=== PATIENT | female | born 1990 | race African-American/Black ===

== ENCOUNTER 2016-11-24 16:39 | Emergency (ER) | payer OTHER ==
--- NOTE | 2016-11-24 19:29 | ED ---
Lower Extremity - HPI Summary HPI Summary: 26F presents with tailbone pain since yesterday. She states that she fell on some ice and landed on her tailbone. She has been able to ambulate. She states the pain has been decreasing. She denies any numbness or tingling. - History of Current Complaint Chief Complaint: EDBackInjuryPain Stated Complaint: LOWER BACK PAIN Time Seen by Provider: 11/24/16 19:03 Pain Intensity: 2 - Allergies/Home Medications Allergies/Adverse Reactions: Allergies Allergy/AdvReac Type Severity Reaction Status Date / Time No Known Allergies Allergy Verified 11/24/16 16:50 PMH/Surg Hx/FS Hx/Imm Hx Endocrine/Hematology History: Denies: Hx Anticoagulant Therapy Cardiovascular History: Denies: Hx Hypertension Sensory History: Reports: Hx Contacts or Glasses - GLASSES Denies: Hx Hearing Aid Opthamlomology History: Reports: Hx Contacts or Glasses - GLASSES - Surgical History Surgery Procedure, Year, and Place: BRAIN SURGERY- AGE 10- [facility] Hx Anesthesia Reactions: No Infectious Disease History: No Infectious Disease History: Denies: Traveled Outside the [place] in Last 30 Days - Family History Known Family History: Negative: Cardiac Disease - Social History Alcohol Use: None Substance Use Type: Reports: None Smoking Status (MU): Never Smoked Tobacco Have You Smoked in the Last Year: No Review of Systems Negative: Fever Negative: Chest Pain Negative: Shortness Of Breath Positive: Myalgia - tailbone pain All Other Systems Reviewed And Are Negative: Yes Physical Exam Triage Information Reviewed: Yes Vital Signs On Initial Exam: Initial Vitals Temp Pulse Resp BP Pulse Ox 97.0 F 73 18 100/72 98 11/24/16 16:49 11/24/16 16:49 11/24/16 16:49 11/24/16 16:49 11/24/16 16:49 Vital Signs Reviewed: Yes Appearance: Positive: Well-Appearing Skin: Positive: Warm, Dry Head/Face: Positive: Normal Head/Face Inspection Eyes: Positive: Normal, Conjunctiva Clear Respiratory/Lung Sounds: Positive: Clear to Auscultation, Breath Sounds Present Cardiovascular: Positive: Normal, RRR Musculoskeletal: Positive: Other - tender over tailbone, neg SLR, good pulses Diagnostics - Vital Signs Vital Signs Temp Pulse Resp BP Pulse Ox 11/24/16 16:49 97.0 F 73 18 100/72 98 - Laboratory Lab Statement: Any lab studies that have been ordered have been reviewed, and results considered in the medical decision making process. - Radiology coocyx Xray Interpretation: No Acute Changes Radiology Interpretation Completed By: Radiologist Lower Extremity Course/Dx - Course Course Of Treatment: 26F presents with injury to tailbone yesterday s/p fall. states pain has been decreasing. on exam tender over coccyx, xray normal, told to use doughnut pillow and increase fiber. patient understand and agrees with plan - Diagnoses Differential Diagnosis/HQI/PQRI: Positive: Contusion, Fracture (Closed), Sprain , Strain Provider Diagnoses: Tailbone injury Discharge - Discharge Plan Condition: Good Disposition: HOME Patient Education Materials: Coccyx Injury (ED) Referrals: No Primary Care Phys,NOPCP [Primary Care Provider] - Additional Instructions: Take Tylenol or ibuprofen every 6 hours for pain Use doughnut pillow to avoid putting pressure on area Increase fiber intake Follow up with primary in 5 days Return to ED if develop any new or worsening symptoms
--- NOTE | 2016-11-24 19:55 | RAD ---
INDICATION: Sacrococcygeal injury. COMPARISON: There are no prior studies available for comparison. TECHNIQUE: 3 views of the sacrococcygeal spine were obtained. 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 The vertebra are in normal alignment. No fracture is seen. IMPRESSION: NO EVIDENCE FOR FRACTURE.
[2016-11-24 20:35] VITALS: BP 114/70
== END 2016-11-24 20:34 | disposition home or self-care (01) ==
LOC: ED 16:39
DX: S39.92XA Unspecified injury of lower back, initial encounter (principal); W00.0XXA Fall on same level due to ice and snow, initial encounter; Y92.9 Unspecified place or not applicable
CPT/HCPCS: 72220; 99282